=== PATIENT | male | born 1975 | race African-American/Black ===

== ENCOUNTER 2017-12-16 21:38 | Emergency (ER) | payer MEDICAID, OTHER ==
[~2017-12-16] VITALS: Ht 185.4 cm; Wt 77.1 kg
[~2017-12-16 21:38] MED LIST: MIRT30TA PO
--- NOTE | 2017-12-16 21:46 | NUR ---
Dr. Bailey at bedside for MSE.
[2017-12-16] MEDS ORDERED: OLANZAPINE 5 MG TABLET ONE (22:07)
[2017-12-16] MEDS ORDERED: OLANZAPINE 5 MG TABLET PO ONE (22:15)
[2017-12-16 22:24] LABS: BASOPHILS % (AUTO) 1.1 % (0.0-2.0); EOSINOPHILS # (AUTO) 0.1 K/uL (0.0-0.7); EOSINOPHILS % (AUTO) 1.4 % (0.0-7.0); HEMATOCRIT 37.8 % (36.7-47.1); HEMOGLOBIN 12.8 g/dL (12.5-16.3); LYMPHOCYTES # (AUTO) 2.3 K/uL (20.0-40.0); LYMPHOCYTES % (AUTO) 59.3 % (20.5-51.5); MEAN CORPUSCULAR HEMOGLOBIN 33.4 uug (23.8-33.4); MEAN CORPUSCULAR HGB CONC 34 g/dL (32.5-36.3); MEAN CORPUSCULAR VOLUME 98.7 fL (73.0-96.2); MONOCYTES # (AUTO) 0.5 K/uL (2.0-10.0); MONOCYTES % (AUTO) 12.2 % (0.0-11.0); PLATELET COUNT (AUTO) 228 K/uL (152-348); RED BLOOD CELL COUNT(AUTO) 3.84 MIL/uL (4.06-5.63); WHITE BLOOD COUNT (AUTO) 3.9 K/uL (3.6-10.2)
[2017-12-16 22:35] LABS: CARBON DIOXIDE 27 mmol/L (21-32); CHLORIDE 107 mmol/L (98-107); CREATININE 1.2 mg/dL (0.6-1.3); GLUCOSE 82 mg/dL (74-106); POTASSIUM 3.6 mmol/L (3.5-5.1); UREA NITROGEN, BLOOD 14 mg/dL (7-18)
--- NOTE | 2017-12-16 22:35 | NUR ---
Patient provided urine sample, sent to lab.
[2017-12-16 22:36] LABS: ETHANOL 445 MG/DL (0-0)
--- NOTE | 2017-12-16 22:41 | NUR ---
Lab called, reported 0.45 alcohol. notified.
[2017-12-16 22:48] LABS: ALANINE AMINOTRANSFERASE 113 U/L (16-63); ALKALINE PHOSPHATASE 42 U/L (50-136); ASPARTATE AMINOTRANSFERASE 122 U/L (15-37); BILIRUBIN,DIRECT 0.1 mg/dL (0.0-0.2); BILIRUBIN,TOTAL 0.4 mg/dL (0.2-1.0); TOTAL PROTEIN, SERUM 7.6 g/dL (6.4-8.2)
[2017-12-16 22:49] LABS: ACETAMINOPHEN < 2.0 ug/mL (10-30)
[2017-12-16 23:00] LABS: *AMPHETAMINE, URINE NEGATIVE (NEGATIVE); *BARBITURATE, URINE NEGATIVE (NEGATIVE); *CANNABINOID, URINE NEGATIVE (NEGATIVE); *COCCAINE, URINE NEGATIVE (NEGATIVE); *OPIATE, URINE NEGATIVE (NEGATIVE); *PHENCYCLIDINE SCREEN,URINE NEGATIVE (NEGATIVE)
--- NOTE | 2017-12-16 23:30 | NUR ---
Pt sleeping in bed, no acute signs of distress.
--- NOTE | 2017-12-17 00:30 | NUR ---
Pt sleeping in bed, no acute signs of distress.
--- NOTE | 2017-12-17 01:45 | NUR ---
Pt sleeping in bed, no acute signs of distress.
--- NOTE | 2017-12-17 02:45 | NUR ---
Pt sleeping in bed, no acute signs of distress.
--- NOTE | 2017-12-17 03:30 | NUR ---
Pt sleeping in bed, no acute signs of distress.
--- NOTE | 2017-12-17 04:30 | NUR ---
Pt sleeping in bed, no acute signs of distress.
--- NOTE | 2017-12-17 05:34 | NUR ---
Pt sleeping in bed, no acute signs of distress.
--- NOTE | 2017-12-17 08:09 | NUR ---
WOKE UP FOR BREAKFAST AND TO USE THE BATHROOM. STEADY GAIT. VERBALLY RESPONSIVE.
--- NOTE | 2017-12-17 08:12 | NUR ---
Patient given written and verbal discharge instructions. Patient verbalizes understanding of instructions. Patient is ambulatory with steady gait. Refuses offer of penitentiary placement. Patient given list of available shelters in surrounding area.
--- NOTE | 2017-12-17 08:12 | NUR ---
Karen hackett in EDM - 12/17/17 at 0812 by CHET Patient discharged to home in stable conditon. Written and verbal after care instructions given. Patient verbalizes understanding of instructions.
== END 2017-12-17 08:13 | disposition home or self-care (01) ==
LOC: ER 21:40
DX: F10.129 Alcohol abuse with intoxication, unspecified (principal); R44.0 Auditory hallucinations
CPT/HCPCS: 36415; 80048; 80076; 80307; 85025; 99284; A4663; G0480 ×2; G0481